=== PATIENT | male | born 1965 | race African-American/Black ===

== ENCOUNTER 2016-10-23 22:21 | Emergency (ER) | payer OTHER ==
[2016-10-23] MEDS ORDERED: [UNRECOGNIZED DRUG - REMARK] (22:40)
[2016-10-23] MEDS ORDERED: OMEPRAZOLE20 M4 PO (22:40)
[2017-05-04] MEDS ORDERED: IBUPROFEN600 M1 PO (20:18)
[2017-05-04] MEDS ORDERED: ZOFRAN4 M2 PO (20:18)
== END 2016-10-23 23:49 ==
LOC: EDMED 22:21
DX: G56.02 Carpal tunnel syndrome, left upper limb (principal); M65.30 Trigger finger, unspecified finger; I10 Essential (primary) hypertension; K21.9 Gastro-esophageal reflux disease without esophagitis; Z79.899 Other long term (current) drug therapy
CPT/HCPCS: J1885